=== PATIENT | female | born 1955 | race Caucasian/White ===

== ENCOUNTER 2017-07-22 11:04 | Inpatient (IN) | payer OTHER ==
[2017-07-22] MEDS ORDERED: Sodium Chloride 0.9% 1000 ML 1,000 ML IV STA ×2 (11:31→12:15)
--- NOTE | 2017-07-22 11:33 | ERPHSYRPT ---
- History of Present Illness Time Seen by Provider: 07/22/17 11:20 Historian: patient Exam Limitations: clinical condition Patient Subjective Stated Complaint: vomiting and fever Triage Nursing Assessment: vomiting intermittent since thursday night. fever intermittent. last vomit was thursday. fgeneralixed weakness. poor oral intake. denies pain. denies painful urination. minimal bm this am. bs hypoactive Physician History: PATIENT WITH A HISTORY OF HYPERTENSION COMPLAINS OF FREQUENT EPISODES OF EMESIS X 4 DAYS, ASSOCIATED WITH FEVER, CHILLS, AND SLIGHT PRESSURE, URGENCY OF URINATION AND WEAKNESS. DENIES COUGH, ABDOMINAL PAIN, FLANK PAIN, AND DIARRHEA. Timing/Duration: day(s) Activities at Onset: none Quality: other (DENIES ABDOMINAL PAIN) Pain Radiation: no radiation Severity of Pain-Max: none Severity of Pain-Current: none Modifying Factors: Improves With: nothing Associated Symptoms: fever/chills, nausea, vomiting, weakness Previous symptoms: no prior history Allergies/Adverse Reactions: No Known Drug Allergies Allergy (Unverified 07/22/17 11:19) Home Medications: Aspirin [Aspir-Low] 81 mg PO DAILY 07/22/17 [History] Diclofenac Sodium 75 mg PO BID 07/22/17 [History] Lisinopril 20 mg [Zestril 20 MG] 20 mg PO DAILY 07/22/17 [History] Triamterene/Hydrochlorothiazid [Triamterene-Hctz 37.5-25 mg Tb] 1 each PO DAILY 07/22/17 [History] Hx Tetanus, Diphtheria Vaccination/Date Given: Yes Hx Influenza Vaccination/Date Given: No Hx Pneumococcal Vaccination/Date Given: No Immunizations Up to Date: Yes - Review of Systems Constitutional: Fever, Chills Eyes: No Symptoms Ears, Nose, & Throat: No Symptoms Respiratory: No Symptoms, No Cough, No Dyspnea Cardiac: No Symptoms, No Chest Pain, No Edema, No Syncope Abdominal/Gastrointestinal: Nausea, Vomiting, No Abdominal Pain, No Diarrhea Genitourinary Symptoms: Urgency, No Dysuria Musculoskeletal: No Back Pain, No Neck Pain Skin: No Rash Neurological: Other (GENERALIZED WEAKNESS), No Dizziness, No Focal Weakness, No Sensory Changes Psychological: No Symptoms Endocrine: No Symptoms All Other Systems: Reviewed and Negative - Past Medical History Pertinent Past Medical History: Yes Cardiac History: Hypertension Musculoskeletal History: Arthritis - Past Surgical History Past Surgical History: No - Social History Smoking Status: Never smoker Exposure to second hand smoke: No Drug Use: none Patient Lives Alone: No - Nursing Vital Signs Nursing Vital Signs: Initial Vital Signs Temperature 100.1 F 07/22/17 11:14 Pulse Rate 134 H 07/22/17 11:14 Respiratory Rate 18 07/22/17 11:14 Blood Pressure 120/69 07/22/17 11:14 O2 Sat by Pulse Oximetry 97 07/22/17 11:14 Pain Scale Pain Intensity 0 - Physical Exam General Appearance: no apparent distress, alert Eye Exam: PERRL/EOMI, eyes nml inspection Ears, Nose, Throat Exam: normal ENT inspection, pharynx normal, moist mucous membranes Neck Exam: normal inspection, non-tender, supple, full range of motion Respiratory Exam: normal breath sounds, lungs clear, No respiratory distress Cardiovascular Exam: regular rate/rhythm, normal heart sounds, tachycardia Gastrointestinal/Abdomen Exam: soft, normal bowel sounds (NONTENDER, NO PALPABLE MASSES), No tenderness, No mass Back Exam: normal inspection, normal range of motion, No CVA tenderness, No vertebral tenderness Extremity Exam: normal inspection, normal range of motion, pelvis stable Neurologic Exam: alert, oriented x 3, cooperative, normal mood/affect, nml cerebellar function, sensation nml, No motor deficits Skin Exam: normal color, warm, dry SpO2 Interpretation: normal SpO2: 97 Oxygen Delivery: Room Air Ordered Tests: Active Orders 24 hr Category Date Time Status Up With Assistance ROUTINE Activity 07/22/17 12:36 Ordered Admission/Status Order ROUTINE Care 07/22/17 12:36 Ordered Clean Catch Urine Specimen STAT Care 07/22/17 11:31 Active Code Status Order ROUTINE Care 07/22/17 12:36 Ordered IV Care Q6H Care 07/22/17 12:36 Ordered IV Insertion STAT Care 07/22/17 11:31 Active Vital Signs Q4H Care 07/22/17 12:36 Ordered BLOOD CULTURE Stat Lab 07/22/17 11:50 Received CBC W DIFF Stat Lab 07/22/17 11:37 Completed CMP Stat Lab 07/22/17 11:37 Completed CULTURE, THROAT Stat Lab 07/22/17 12:03 Received CULTURE,URINE Stat Lab 07/22/17 11:37 Received Lactic Acid Stat Lab 07/22/17 Completed Manual Differential NC Stat Lab 07/22/17 11:37 Completed STREP SCREEN-BETA A Stat Lab 07/22/17 12:03 Completed UA W/ MICROSCOPIC Stat Lab 07/22/17 11:37 Completed Transfer Order Routine Transfer 07/22/17 Ordered Medication Summary Generic Name Dose Route Start Last Admin Trade Name [place] PRN Reason Stop Dose Admin Acetaminophen 650 mg 07/22/17 12:36 Tylenol 325 Mg PO 08/21/17 12:35 Q4H PRN PRN PAIN AND/OR FEVER Aspirin 81 mg 07/23/17 10:00 Ecotrin 81 Mg PO 08/22/17 09:59 DAILY MAE Sodium Chloride 1,000 mls @ 999 mls/hr 07/22/17 12:15 07/22/17 12:27 Sodium Chloride 0.9% 1000 Ml IV 07/22/17 13:15 999 mls/hr .Q1H1M STA Administration Piperacillin Sod/Tazobactam Sod 3.375 gm in 100 mls @ 200 mls/hr 07/22/17 18: 00 Zosyn 3.375gm/100 Ml D5w IV 08/21/17 17:59 Q6HT MAE Sodium Chloride 1,000 mls @ 100 mls/hr 07/22/17 12:45 Sodium Chloride 0.9% 1000 Ml IV 08/21/17 12:44 .Q10H MAE Lisinopril 20 mg 07/23/17 10:00 Zestril 20 Mg PO 08/22/17 09:59 DAILY MAE Ondansetron HCl 4 mg 07/22/17 12:36 Zofran 4 Mg/2 Ml Vial IV 08/21/17 12:35 Q6H PRN PRN NAUSEA/VOMITING Discontinued Medications Generic Name Dose Route Start Last Admin Trade Name Mecca PRN Reason Stop Dose Admin Acetaminophen 650 mg 07/22/17 11:40 07/22/17 11:41 Tylenol 325 Mg PO 07/22/17 11:41 650 mg STAT STA Administration Acetaminophen Confirm 07/22/17 11:41 Tylenol 325 Mg Administered 07/22/17 11:42 Dose 650 mg .ROUTE .STK-MED ONE Sodium Chloride 1,000 mls @ 999 mls/hr 07/22/17 11:31 07/22/17 11:36 Sodium Chloride 0.9% 1000 Ml IV 07/22/17 12:31 999 mls/hr .Q1H1M STA Administration Sodium Chloride Confirm 07/22/17 11:35 Sodium Chloride 0.9% 1000 Ml Administered 07/22/17 11:36 Dose 1,000 mls @ ud .ROUTE .STK-MED ONE Piperacillin Sod/Tazobactam 100 mls @ 200 mls/hr 07/22/17 12:14 07/22/17 12: 27 Sod 4.5 gm/ Dextrose IV 07/22/17 12:43 200 mls/hr STAT ONE Administration Sodium Chloride Confirm 07/22/17 12:21 Sodium Chloride 0.9% 1000 Ml Administered 07/22/17 12:22 Dose 1,000 mls @ ud .ROUTE .STK-MED ONE Dextrose Confirm 07/22/17 12:23 D5w 100ml Mini Bag 100 Ml Administered 07/22/17 12:24 Dose 100 mls @ ud IV .STK-MED ONE Piperacillin Sod/Tazobactam Sod Confirm 07/22/17 12:21 Zosyn Inj Administered 07/22/17 12:22 Dose 4.5 gm IV .STK-MED ONE Lab/Rad Data: Laboratory Result Diagrams 07/22/17 11:37 07/22/17 11:37 Laboratory Results 07/22/17 07/22/17 07/22/17 Range/Units Unknown 12:03 11:37 WBC (4.0-10.5) K/mm3 RBC (4.1-5.4) M/mm3 Hgb (12.0-16.0) gm/dl Hct (35-47) % MCV (78-100) fl MCH (26-32) pg MCHC (32-36) g/dl RDW (11.5-14.0) % Plt Count (150-450) K/mm3 MPV (6-9.5) fl Segmented Neutrophils (36.0-66.0) % Lymphocytes (Manual) (24-44) % Monocytes (Manual) (0.0-12.0) % Differential Comment Platelet Estimate (NORMAL) Poikilocytosis Sodium (136-145) mEq/L Potassium (3.5-5.1) mEq/L Chloride (98-107) mEq/L Carbon Dioxide (21-32) mEq/L Anion Gap (5-15) MEQ/L BUN (9-20) mg/dL Creatinine (0.55-1.30) mg/dl Estimated GFR ML/MIN Glucose (70-110) MG/DL Lactic Acid 1.2 (0.4-2.0) Calcium (8.5-10.1) mg/dL Total Bilirubin (0.2-1.0) mg/dL AST (15-37) U/L ALT (12-78) U/L Alkaline Phosphatase (46-116) U/L Serum Total Protein (6.4-8.2) gm/dL Albumin (3.4-5.0) g/dL Ur Collection Type VOID Urine Color YELLOW (YELLOW) Urine Appearance CLOUDY (CLEAR) Urine pH 5.0 (5-6) Ur Specific [place] 1.015 (1.005-1.025) Urine Protein 500 (Negative) Urine Ketones TRACE (NEGATIVE) Urine Blood 250 (0-5) Simon/ul Urine Nitrite POSITIVE (NEGATIVE) Urine Bilirubin SMALL (NEGATIVE) Urine Urobilinogen 4 (0-1) mg/dL Ur Leukocyte Esterase 2+ (NEGATIVE) Urine Microscopic RBC 25-50 (0-2) /HPF Urine Microscopic WBC >100 (0-5) /HPF Urine Bacteria MANY (NEGATIVE) /HPF Urine Glucose NEGATIVE (NEGATIVE) mg/dL Streptococcus Screen NEGATIVE (Negative) Specimen Received 07/22/17 1130 07/22/17 07/22/17 Range/Units 11:37 11:37 WBC 13.1 H (4.0-10.5) K/mm3 RBC 3.78 L (4.1-5.4) M/mm3 Hgb 11.8 L (12.0-16.0) gm/dl Hct 33.9 L (35-47) % MCV 89.7 (78-100) fl MCH 31.2 (26-32) pg MCHC 34.8 (32-36) g/dl RDW 11.7 (11.5-14.0) % Plt Count 198 (150-450) K/mm3 MPV 9.6 H (6-9.5) fl Segmented Neutrophils 80 H (36.0-66.0) % Lymphocytes (Manual) 16 L (24-44) % Monocytes (Manual) 4 (0.0-12.0) % Differential Comment ABNORMAL Platelet Estimate NORMAL (NORMAL) Poikilocytosis 1+ Sodium 133 L (136-145) mEq/L Potassium 3.8 (3.5-5.1) mEq/L Chloride 96 L (98-107) mEq/L Carbon Dioxide 22.7 (21-32) mEq/L Anion Gap 18.3 H (5-15) MEQ/L BUN 30 H (9-20) mg/dL Creatinine 2.27 H (0.55-1.30) mg/dl Estimated GFR 23 ML/MIN Glucose 144 H (70-110) MG/DL Lactic Acid (0.4-2.0) Calcium 9.4 (8.5-10.1) mg/dL Total Bilirubin 0.90 (0.2-1.0) mg/dL AST 34 (15-37) U/L ALT 54 (12-78) U/L Alkaline Phosphatase 169 H (46-116) U/L Serum Total Protein 7.7 (6.4-8.2) gm/dL Albumin 3.0 L (3.4-5.0) g/dL Ur Collection Type Urine Color (YELLOW) Urine Appearance (CLEAR) Urine pH (5-6) Ur Specific [place] (1.005-1.025) Urine Protein (Negative) Urine Ketones (NEGATIVE) Urine Blood (0-5) Simon/ul Urine Nitrite (NEGATIVE) Urine Bilirubin (NEGATIVE) Urine Urobilinogen (0-1) mg/dL Ur Leukocyte Esterase (NEGATIVE) Urine Microscopic RBC (0-2) /HPF Urine Microscopic WBC (0-5) /HPF Urine Bacteria (NEGATIVE) /HPF Urine Glucose (NEGATIVE) mg/dL Streptococcus Screen (Negative) Specimen Received - Progress Progress Note: 07/22/17 12:05 PATIENT ADMINISTERED IV NORMAL SALINE 2 LITERS, LACTIC ACID1.2, AFTER 2 SETS OF BLOOD CULTURES, IV ZOSYN 4.5GM IVPB DUE TO CREATININE 2.2 07/22/17 12:18 LACTIC ACID 1.2 Discussed with : Rahul Will see patient in: hospital (observation) - Departure Time of Disposition: 12:45 Departure Disposition: Observation Clinical Impression: URINARY TRACT INFECTION, SEPTICEMIA Condition: Stable Critical Care Time: No Referrals: ADIS BRANCH NP [Primary Care Provider] -
[2017-07-22] MEDS ORDERED: Sodium Chloride 0.9% 1000 ML 1,000 ML ONE ×2 (11:35→12:21)
[2017-07-22 11:40] LABS: Mean Cell Volume 89.7 fl (78-100); Mean Corpuscular Hemoglobin 31.2 pg (26-32); Mean Platelet Volume 9.6 fl (6-9.5); Platelet Count 198 K/mm3 (150-450); Red Blood Count 3.78 M/mm3 (4.1-5.4); Red Cell Distribution Width 11.7 % (11.5-14.0); White Blood Count 13.1 K/mm3 (4.0-10.5)
[2017-07-22] MEDS ORDERED: TYLENOL 325 MG PO STA (11:40)
[2017-07-22] MEDS ORDERED: TYLENOL 325 MG ONE (11:41)
[2017-07-22 11:58] LABS: ANION GAP 18.3 MEQ/L (5-15); BILIRUBIN,TOTAL 0.9 mg/dL (0.2-1.0); Carbon Dioxide 22.7 mEq/L (21-32); Potassium 3.8 mEq/L (3.5-5.1); Total Protein 7.7 gm/dL (6.4-8.2)
[2017-07-22 12:00] LABS: Bilirubin SMALL (NEGATIVE); Blood 250 Ery/ul (0-5); COMPLETE URINE MICROSCOPIC? YES; Collection Type VOID; Glucose NEGATIVE (NEGATIVE); Leukocyte Esterase 2+ (NEGATIVE)
[2017-07-22 12:01] LABS: ADD URINE CULTURE? NO (NO); Bacteria MANY /HPF (NEGATIVE); WBC >100 /HPF (0-5)
[2017-07-22 12:14] LABS: Total Cells Counted 100
[2017-07-22] MEDS ORDERED: Zosyn INJ 4.5 GM in D5w 100ML Mini Bag 100 ML 100 ML IV ONE (12:14)
[2017-07-22 12:16] LABS: Platelet Estimate NORMAL (NORMAL); Poikilocytosis 1+
[2017-07-22] MEDS ORDERED: Zosyn INJ IV ONE (12:21)
[2017-07-22] MEDS ORDERED: D5w 100ML Mini Bag 100 ML 100 ML IV ONE (12:23)
[2017-07-22] MEDS ORDERED: Zofran 4 MG/2 ML VIAL IV PRN (12:36)
[2017-07-22] MEDS: Sodium Chloride 0.9% 1000 ML 1,000 ML IV SCH ×2 (13:47→23:00)
[2017-07-22] MEDS: ECOTRIN 81 MG PO SCH (14:53)
[2017-07-22] MEDS: Zestril 20 MG PO SCH (14:54)
--- NOTE | 2017-07-22 16:53 | PCM.HP ---
History of Present Illness - Chief Complaint Chief Complaint: URINARY TRACT INFECTION History of Present Illness: is a 62 year old female who has had fever, weakness and felt poorly for the last four days, she has had some nausea and vomiting. no cough, no sore throat, no abdominal or flank pain. denies dysuria, frequency or hesitancy. - Review of Systems Constitutional: Fever, Chills, Weakness Respiratory: No Cough, No Short Of Breath Cardiac: No Chest Pain, No Edema, No Syncope Abdominal/Gastrointestinal: No Abdominal Pain, No Nausea, No Vomiting, No Diarrhea Genitourinary Symptoms: No Dysuria, No Frequency, No Hesitancy Skin: No Rash All Other Systems: Reviewed and Negative Medications & Allergies Home Medications: Home Medication List Aspirin [Aspir-Low] 81 mg PO DAILY 07/22/17 [History Confirmed 07/22/17] Diclofenac Sodium 75 mg PO BID 07/22/17 [History Confirmed 07/22/17] Lisinopril 20 mg [Zestril 20 MG] 20 mg PO DAILY 07/22/17 [History Confirmed 07/22/17] Triamterene/Hydrochlorothiazid [Triamterene-Hctz 37.5-25 mg Tb] 1 each PO DAILY 07/22/17 [History Confirmed 07/22/17] Allergies/Adverse Reactions: Allergies Allergy/AdvReac Type Severity Reaction Status Date / Time No Known Drug Allergies Allergy Unverified 07/22/17 11:19 - Past Medical History Past Medical History: Yes Neurological History: No Pertinent History Cardiac History: Hypertension Respiratory History: No Pertinent History Endocrine Medical History: No Pertinent History Musculoskelatal History: Arthritis GI Medical History: No Pertinent History History: No Pertinent History Pyscho-Social History: No Pertinent History Reproductive Disorders: No Pertinent History - Female History Are you now?: No - Past Surgical History Past Surgical History: Yes Female Surgical History: Tubal Ligation - Social History Smoking Status: Never smoker Exposure to second hand smoke: No Alcohol: Occasionally Drug Use: none - Physical Exam Vital Signs: Vital Signs - 24 hr Temp Pulse Resp BP Pulse Ox 07/22/17 16:28 98.5 F 68 20 110/68 96 07/22/17 13:26 99.4 F 92 H 18 107/52 96 07/22/17 13:04 99.4 F 92 H 18 104/52 96 07/22/17 13:02 99.4 F 92 H 18 104/52 96 07/22/17 12:43 97 07/22/17 12:30 90 18 112/61 07/22/17 11:14 100.1 F 134 H 18 120/69 97 General Appearance: no apparent distress, alert Respiratory Exam: normal breath sounds, lungs clear, No respiratory distress Cardiovascular Exam: regular rate/rhythm, normal heart sounds, normal peripheral pulses Gastrointestinal/Abdomen Exam: soft, normal bowel sounds, No tenderness, No mass Back Exam: No CVA tenderness Extremity Exam: normal inspection, normal range of motion, pelvis stable Skin Exam: normal color, warm, dry, No rash Results - Labs Lab/Micro Results: Lab Results-Last 24 Hours 07/22/17 Range/Units Unknown Lactic Acid 1.2 (0.4-2.0) Assessment/Plan (1) Acute pyelonephritis Current Visit: Yes Status: Acute Assessment & Plan: blood and urine culture are pending, currently on zosyn. will continue to follow renal function. Code(s): N10 - ACUTE PYELONEPHRITIS (2) Acute renal insufficiency Current Visit: Yes Status: Acute Assessment & Plan: check kidney ultrasound, fluids and monitor lab functions Code(s): N28.9 - DISORDER OF KIDNEY AND URETER, UNSPECIFIED (3) Essential (primary) hypertension Current Visit: Yes Status: Acute Assessment & Plan: continue home meds Code(s): I10 - ESSENTIAL (PRIMARY) HYPERTENSION
[2017-07-22] MEDS: Zosyn 2.25 GM 2.25 GM in Dextrose 5%/Water IV Soln. 100ML PLUS BAG 100 ML IV SCH (17:01)
[2017-07-22] MEDS ORDERED: Zosyn 3.375GM/100 Ml D5W 3.375 GM/100 ML IVPB IV SCH (18:00)
[2017-07-22] MEDS: ENOXAPARIN SODIUM SQ SCH (18:09)
[2017-07-22] MEDS: TYLENOL 325 MG PO PRN (19:48)
[2017-07-23] MEDS: TYLENOL 325 MG PO PRN ×5 (00:03→20:56)
[2017-07-23] MEDS: Zosyn 2.25 GM 2.25 GM in Dextrose 5%/Water IV Soln. 100ML PLUS BAG 100 ML IV SCH ×5 (00:04→23:27)
[2017-07-23 05:31] LABS: BASOPHIL % 0.1 % (0.0-0.4); Granulocytes % 84.7 % (36.0-66.0); Lymphocytes % 5.4 % (24.0-44.0); Mean Cell Volume 90.8 fl (78-100); Mean Platelet Volume 9.5 fl (6-9.5); Monocytes % 9.8 % (0.0-12.0); Platelet Count 190 K/mm3 (150-450); Red Blood Count 3.26 M/mm3 (4.1-5.4); Red Cell Distribution Width 11.6 % (11.5-14.0); White Blood Count 11.6 K/mm3 (4.0-10.5)
[2017-07-23 05:51] LABS: ALBUMIN 2.3 g/dL (3.4-5.0); ANION GAP 13.7 MEQ/L (5-15); Carbon Dioxide 24.1 mEq/L (21-32); MAGNESIUM 1.7 mg/dL (1.8-2.4); Potassium 3.4 mEq/L (3.5-5.1); Total Protein 6.6 gm/dL (6.4-8.2)
[2017-07-23] MEDS: Sodium Chloride 0.9% 1000 ML 1,000 ML IV SCH (06:26)
[2017-07-23 06:40] LABS: Mean Corpuscular Hemoglobin 31.2 pg (26-32)
--- NOTE | 2017-07-23 08:20 | PCM.NOTE ---
Date and Time: 07/23/17818 Subjective Assessment: patient reports she felt poorly last night and didn't sleep well due to fever. tolerating po, no vomiting. no new complaints, no abdominal pain Objective Exam General Appearance: no apparent distress Eye Exam: PERRL, EOMI, eyes nml inspection Respiratory Exam: normal breath sounds, lungs clear, No respiratory distress Cardiovascular Exam: regular rate/rhythm, normal heart sounds Gastrointestinal/Abdomen Exam: soft, No tenderness, No mass OBJECTIVE DATA Vital Signs: Vital Signs - 24 hr Temp Pulse Resp BP Pulse Ox 07/23/17 06:59 98.9 F 90 20 105/52 96 07/23/17 04:00 101.9 F 85 20 102/57 96 07/23/17 00:00 100.9 F 100 H 24 128/65 92 L 07/22/17 19:54 102.9 F 132 H 21 133/58 92 L 07/22/17 17:04 98.6 F 07/22/17 16:28 98.5 F 68 20 110/68 96 07/22/17 13:26 99.4 F 92 H 18 107/52 96 07/22/17 13:04 99.4 F 92 H 18 104/52 96 07/22/17 13:02 99.4 F 92 H 18 104/52 96 07/22/17 12:43 97 07/22/17 12:30 90 18 112/61 07/22/17 11:14 100.1 F 134 H 18 120/69 97 Pain Assessment - Last Documented Pain Intensity 0 Pain Scale Used 0-10 Pain Scale Intake and Output: Intake & Output 07/20/17 07/21/17 07/22/17 07/23/17 11:59 11:59 11:59 11:59 Intake Total 3487 Output Total 500 Balance 2987 Weight 86.75 kg Lab Results: Lab Results-Last 24 Hours 07/22/17 07/23/17 07/23/17 Range/Units Unknown 05:05 05:05 WBC 11.6 H (4.0-10.5) K/mm3 RBC 3.26 L (4.1-5.4) M/mm3 Hgb 10.2 L (12.0-16.0) gm/dl Hct 29.6 L (35-47) % MCV 90.8 (78-100) fl MCH 31.2 (26-32) pg MCHC 34.5 (32-36) g/dl RDW 11.6 (11.5-14.0) % Plt Count 190 (150-450) K/mm3 MPV 9.5 (6-9.5) fl Gran % 84.7 H (36.0-66.0) % Lymphocytes % 5.4 L (24.0-44.0) % Monocytes % 9.8 (0.0-12.0) % Eosinophils % 0.0 (0.00-5.0) % Basophils % 0.1 (0.0-0.4) % Basophils # 0.01 (0-0.4) Sodium 138 (136-145) mEq/L Potassium 3.4 L (3.5-5.1) mEq/L Chloride 104 (98-107) mEq/L Carbon Dioxide 24.1 (21-32) mEq/L Anion Gap 13.7 (5-15) MEQ/L BUN 24 H (9-20) mg/dL Creatinine 2.06 H (0.55-1.30) mg/dl Estimated GFR 26 ML/MIN Glucose 127 H (70-110) MG/DL Lactic Acid 1.2 (0.4-2.0) Calcium 8.6 (8.5-10.1) mg/dL Magnesium 1.7 L (1.8-2.4) mg/dL Total Bilirubin 1.00 (0.2-1.0) mg/dL AST 35 (15-37) U/L ALT 53 (12-78) U/L Alkaline Phosphatase 162 H (46-116) U/L Serum Total Protein 6.6 (6.4-8.2) gm/dL Albumin 2.3 L (3.4-5.0) g/dL Assessment/Plan (1) Acute pyelonephritis Current Visit: Yes Status: Acute Assessment & Plan: continue zosyn and IV fluids Code(s): N10 - ACUTE PYELONEPHRITIS (2) Acute renal insufficiency Current Visit: Yes Status: Acute Assessment & Plan: improving slowly with IV hydration Code(s): N28.9 - DISORDER OF KIDNEY AND URETER, UNSPECIFIED (3) Essential (primary) hypertension Current Visit: Yes Status: Acute Code(s): I10 - ESSENTIAL (PRIMARY) HYPERTENSION
[2017-07-23] MEDS: ENOXAPARIN SODIUM SQ SCH (08:43)
[2017-07-23] MEDS: Zestril 20 MG PO SCH (08:43)
[2017-07-23] MEDS: ECOTRIN 81 MG PO SCH (08:43)
[2017-07-23] MEDS: SODIUM CHLORIDE 0.45% W/ 20 mEq KCL 1,000 ML IV SCH (18:28)
[2017-07-24] MEDS: SODIUM CHLORIDE 0.45% W/ 20 mEq KCL 1,000 ML IV SCH ×3 (03:25→21:37)
[2017-07-24] MEDS: TYLENOL 325 MG PO PRN ×2 (04:25→19:30)
[2017-07-24] MEDS: Zosyn 2.25 GM 2.25 GM in Dextrose 5%/Water IV Soln. 100ML PLUS BAG 100 ML IV SCH ×4 (05:06→23:24)
[2017-07-24 05:55] LABS: Mean Cell Volume 90.4 fl (78-100); Mean Corpuscular Hemoglobin 31.2 pg (26-32); Mean Platelet Volume 9.2 fl (6-9.5); Platelet Count 194 K/mm3 (150-450); Red Blood Count 2.82 M/mm3 (4.1-5.4); Red Cell Distribution Width 11.7 % (11.5-14.0); White Blood Count 10.1 K/mm3 (4.0-10.5)
[2017-07-24 06:15] LABS: ANION GAP 15.6 MEQ/L (5-15); Carbon Dioxide 20.2 mEq/L (21-32); Potassium 3.3 mEq/L (3.5-5.1)
--- NOTE | 2017-07-24 08:00 | PCM.NOTE ---
Date and Time: 07/24/17 0758 Subjective Assessment: still running fever overnight, feels fatigued. denies pain, tolerating po intake. no abdominal pain or vomiting/diarrhea etc Objective Exam General Appearance: no apparent distress, alert Skin Exam: normal color, warm, dry Respiratory Exam: normal breath sounds, lungs clear, No respiratory distress Cardiovascular Exam: regular rate/rhythm, normal heart sounds Gastrointestinal/Abdomen Exam: soft, No tenderness, No mass Back Exam: normal inspection, normal range of motion, No CVA tenderness, No vertebral tenderness OBJECTIVE DATA Vital Signs: Vital Signs - 24 hr Temp Pulse Resp BP Pulse Ox 07/24/17 04:00 99.8 F 91 H 16 112/59 99 07/24/17 00:00 99.2 F 76 16 95/53 98 07/23/17 20:00 100.7 F 86 16 103/58 96 07/23/17 17:45 102.2 F 07/23/17 16:00 100.8 F 87 20 106/51 96 07/23/17 12:40 99.6 F 07/23/17 11:38 100.5 F 101 H 18 117/55 96 07/23/17 11:17 18 Oxygen-Last 24 hours O2 Percentage 4 Liters = 36% Pain Assessment - Last Documented Pain Intensity 0 Pain Scale Used 0-10 Pain Scale Intake and Output: Intake & Output 07/21/17 07/22/17 07/23/17 07/24/17 11:59 11:59 11:59 11:59 Intake Total 3727 1200 Output Total 500 950 Balance 3227 250 Weight 86.75 kg Lab Results: Lab Results-Last 24 Hours 07/24/17 07/24/17 Range/Units 05:35 05:35 WBC 10.1 (4.0-10.5) K/mm3 RBC 2.82 L (4.1-5.4) M/mm3 Hgb 8.8 L (12.0-16.0) gm/dl Hct 25.5 L (35-47) % MCV 90.4 (78-100) fl MCH 31.2 (26-32) pg MCHC 34.5 (32-36) g/dl RDW 11.7 (11.5-14.0) % Plt Count 194 (150-450) K/mm3 MPV 9.2 (6-9.5) fl Sodium 140 (136-145) mEq/L Potassium 3.3 L (3.5-5.1) mEq/L Chloride 107 (98-107) mEq/L Carbon Dioxide 20.2 L (21-32) mEq/L Anion Gap 15.6 H (5-15) MEQ/L BUN 16 (9-20) mg/dL Creatinine 1.53 H (0.55-1.30) mg/dl Estimated GFR 37 ML/MIN Glucose 150 H (70-110) MG/DL Calcium 8.4 L (8.5-10.1) mg/dL Radiology Exams: Radiology Procedures Category Date Time Status KIDNEY [US] Urgent Exams 07/24/17 Ordered Assessment/Plan (1) Acute pyelonephritis Current Visit: Yes Status: Acute Assessment & Plan: on zosyn, should have ID on urine culture today. will get renal u/s to r/o abscess or other complications. Code(s): N10 - ACUTE PYELONEPHRITIS (2) Acute renal insufficiency Current Visit: Yes Status: Acute Assessment & Plan: continues to improve with hydration, will follow Code(s): N28.9 - DISORDER OF KIDNEY AND URETER, UNSPECIFIED (3) Essential (primary) hypertension Current Visit: Yes Status: Acute Code(s): I10 - ESSENTIAL (PRIMARY) HYPERTENSION
--- NOTE | 2017-07-24 09:07 | XRAY ---
Indication: Fever. Acute pyelonephritis. Two-dimensional renal sonogram performed. Comparison: None Both kidneys normal in reniform shape with normal color perfusion. The right kidney measures 10.9 x 5.1 x 6.0 cm and the left measures 12.7 x 5.9 x 5.7 cm. No suspicious renal mass, hydronephrosis, or perinephric fluid. Cortical medullary differentiation preserved. Images of the urinary bladder unremarkable. Incidental 6.9 cm left ovary cyst. Impression: Negative renal sonogram. Incidental 6.9 cm left ovary cyst.
[2017-07-24] MEDS: Zestril 20 MG PO SCH (09:23)
[2017-07-24] MEDS: ECOTRIN 81 MG PO SCH (09:23)
[2017-07-24] MEDS: ENOXAPARIN SODIUM SQ SCH (09:23)
[2017-07-24 12:11] LABS: Total Cells Counted 100
[2017-07-24 12:12] LABS: Platelet Estimate NORMAL (NORMAL)
[2017-07-25] MEDS: TYLENOL 325 MG PO PRN (03:41)
[2017-07-25] MEDS: Zosyn 2.25 GM 2.25 GM in Dextrose 5%/Water IV Soln. 100ML PLUS BAG 100 ML IV SCH ×2 (05:08→11:03)
[2017-07-25 05:36] LABS: Platelet Count 229 K/mm3 (150-450); Red Blood Count 2.67 M/mm3 (4.1-5.4); Red Cell Distribution Width 11.9 % (11.5-14.0); White Blood Count 7.9 K/mm3 (4.0-10.5)
[2017-07-25 05:52] LABS: ANION GAP 14.6 MEQ/L (5-15); Carbon Dioxide 20.7 mEq/L (21-32); Potassium 3.7 mEq/L (3.5-5.1)
[2017-07-25] MEDS: SODIUM CHLORIDE 0.45% W/ 20 mEq KCL 1,000 ML IV SCH (07:32)
[2017-07-25] MEDS: ENOXAPARIN SODIUM SQ SCH (09:07)
[2017-07-25] MEDS: Zestril 20 MG PO SCH (09:07)
[2017-07-25] MEDS: ECOTRIN 81 MG PO SCH (09:07)
--- NOTE | 2017-07-25 09:20 | PCM.DCORD ---
- Discharge Discharge Date: 07/25/17 Disposition: Home, Self-Care Condition: Stable Prescriptions: New Amoxicillin/Potassium Clav [Augmentin 875 mg (Amox Tr-K Clv 875-125 mg)] 1 each PO BID 7 Days #14 tablet Continue Triamterene/Hydrochlorothiazid [Triamterene-Hctz 37.5-25 mg Tb] 1 each PO DAILY Lisinopril 20 mg [Zestril 20 MG] 20 mg PO DAILY Diclofenac Sodium 75 mg PO BID Aspirin [Aspir-Low] 81 mg PO DAILY Instructions: Hydrocodone and Acetaminophen. Follow up with: ADIS BRANCH NP [Primary Care Provider] -
[2017-07-25 10:31] LABS: ANISOCYTOSIS 1+; Platelet Estimate NORMAL (NORMAL); Total Cells Counted 100; Toxic Granulation 1+
[2017-07-25 12:04] VITALS: BP 126/63; PULSE 78; O2SAT 97
--- NOTE | 2017-07-27 11:51 | DS ---
DISCHARGE DIAGNOSIS: ESCHERICHIA COLI URINARY TRACT INFECTION. HOSPITAL COURSE: The patient is a 62 year-old white female who presented with vomiting, fever and generalized malaise. She was evaluated in the emergency room and found to have urinary tract infection. She was admitted to the hospital on IV Zosyn. Urine culture did return positive for Escherichia coli this appeared to be sensitive to all antibiotics tested. The patient has no known drug allergies. The patient was feeling much better by 07/25/2017 and was felt to be ready for discharge home. She was discharged home on Augmentin 875 mg twice a day for seven days with instructions to follow up with Dr. Kay in the office next week. She is to stop the antibiotic if she develops significant diarrhea and to call us if she has any further problems otherwise.
== END 2017-07-25 12:10 | disposition home or self-care (01) | DRG 690 ==
LOC: ED 11:04 → UNDOADMOB 12:55 → OBSVTOIN 12:55 → INTOOBSV 12:55 → MED SURG 12:55 → UNDODISIN 07-25 12:10
PROVIDERS: ADMIT Family Medicine; ATTEND Family Medicine
DX: N10 Acute pyelonephritis (principal); B96.20 Unspecified Escherichia coli [E. coli] as the cause of diseases classified elsewhere; I10 Essential (primary) hypertension; N28.9 Disorder of kidney and ureter, unspecified
CPT/HCPCS: 36000; 36415; 76770; 80048; 80053; 81000; 83605; 83735; 85025; 87040; 87070; 87077; 87086; 87186; 87430; 96360; 96361; 96365; 99285; J1650; J2543; A9270-GY